=== PATIENT | female | born 1980 | race Caucasian/White ===

== ENCOUNTER 2019-09-01 16:29 | Emergency (ER) | payer OTHER ==
[~2019-09-01] VITALS: Ht 157.5 cm; Wt 64.4 kg
[2019-09-01 16:41] VITALS: BP 128/94
[2019-09-01] MEDS ORDERED: IBUPROFEN 800800 M1 PO (17:09)
[2019-09-01] MEDS ORDERED: TRAMADOL 50 MG50 MG PO (17:09)
[2019-09-01] MEDS ORDERED: AZITHROMYCIN500 MG PO (17:09)
== END 2019-09-01 17:15 | disposition home or self-care (01) ==
LOC: M.ERS 16:29
DX: H66.91 Otitis media, unspecified, right ear (principal); Z88.0 Allergy status to penicillin; Z88.1 Allergy status to other antibiotic agents; Z88.2 Allergy status to sulfonamides